=== PATIENT | female | born 1935 | race Caucasian/White ===

== ENCOUNTER 2022-12-03 10:38 | Outpatient (CLI) | payer MEDICARE | END 2022-12-03 23:59 | disposition home or self-care (01) | LOC: CARD DIAG 10:38 | PROVIDERS: ATTEND Internal Medicine Cardiovascular Disease | DX: I34.0 Nonrheumatic mitral (valve) insufficiency (principal); R06.02 Shortness of breath | CPT/HCPCS: 93306 ==

== ENCOUNTER 2024-01-29 06:09 | Day surgery (SDC) | payer MEDICARE ==
[2024-01-29] VITALS (10 sets, daily range): BP systolic 137–164; BP diastolic 64–104; PULSE 48–74; RESP 15–20; TEMP 98.7; O2SAT 93–98
[~2024-01-29] VITALS: Ht 167.6 cm; Wt 103.4 kg
[2024-01-29] MEDS ORDERED: LIDOcaine 1% w/EPI 1:100,000 inj. MDV 50 ML VIAL ONE (07:13)
[2024-01-29] MEDS ORDERED: midazolam 1 mg/ML 2ml injection ONE (07:13)
[2024-01-29] MEDS ORDERED: fentaNYL/PF 50MCG/1 ML 2ML syringe ONE (07:14)
[2024-01-29] MEDS ORDERED: ceFAZolin 1000mg inj ONE (07:14)
[2024-01-29 07:24] LABS: APTT 25 SECONDS (22-32); PROTHROMBIN TIME 11.2 SECONDS (9.0-12.0)
[2024-01-29] MEDS ORDERED: HYDR-3964 PO (07:25)
[2024-01-29] MEDS ORDERED: LISI5TAB22 PO (07:25)
[2024-01-29] MEDS ORDERED: FURO20TA4 (07:25)
[2024-01-29] MEDS ORDERED: LETR2.5T7 PO (07:25)
[2024-01-29 07:39] LABS: ALBUMIN 3.6 G/DL (3.4-5.0); ANION GAP 8 (8-16); BLOOD UREA NITROGEN 33 MG/DL (7-18); BUN/CREATININE RATIO 33.7 (10.0-20.0); CALCIUM 8.9 MG/DL (8.5-10.1); CHLORIDE 109 MMOL/L (99-107); CREATININE 0.98 MG/DL (0.40-0.90); GLUCOSE 87 MG/DL (70-104); POTASSIUM 4.1 MMOL/L (3.5-5.1); SODIUM 145 MMOL/L (135-145); TOTAL CARBON DIOXIDE 28.3 MMOL/L (24-32); eCRCL 38 ML/MIN; eGFR 54 ML/MIN
[2024-01-29 07:40] LABS: BASOPHILS % (AUTO) 0.9 % (0-1); EOSINOPHILS # (AUTO) 0.1 X10'3 (0-0.9); HEMOGLOBIN 13.5 g/dl (12.0-16.0); LYMPHOCYTES # (AUTO) 1.1 X10'3 (1.1-4.8); LYMPHOCYTES % (AUTO) 20.3 % (21-51); MEAN CORPUSCULAR HEMOGLOBIN 31.6 PG (27.0-31.0); MEAN CORPUSCULAR VOLUME 95.8 FL (78-98); MEAN PLATELET VOLUME 8.6 FL (7.4-10.4); MONOCYTES # (AUTO) 0.5 X10'3 (0-0.9); MONOCYTES % (AUTO) 9.8 % (2-12); NEUTROPHILS # (AUTO) 3.5 X10'3 (1.8-7.7); PLATELET COUNT 186 X10'3 (140-440); RED BLOOD COUNT 4.28 X10'6 (4.20-5.60); RED CELL DISTRIBUTION WIDTH 14.9 % (11.5-14.5); WHITE BLOOD COUNT 5.2 X10'3 (4.5-11.0)
[2024-01-29] MEDS ORDERED: HYDROcodone/acetaminophen 5mg/325mg tablet PO PRN (10:15)
[2024-01-29] MEDS ORDERED: HYDROcodone/acetaminophen 10/325mg tab PO PRN (10:15)
[2024-01-29] MEDS: cefazolin 2gm/D5W 100mL 100 ML IV ONE (11:09)
[2024-01-29] MEDS: vancomycin/NS 1 GM ADD-VANTAGE 250 ML IV ONE (11:10)
[2024-01-29] MEDS: normal saline 1000ml 1,000 ML IV SCH (11:12)
== END 2024-01-29 14:30 | disposition home or self-care (01) ==
LOC: SSTAY O 06:09
PROVIDERS: ATTEND Internal Medicine Cardiovascular Disease
DX: I49.5 Sick sinus syndrome (principal); I49.1 Atrial premature depolarization; I25.2 Old myocardial infarction; I10 Essential (primary) hypertension; E78.5 Hyperlipidemia, unspecified; I48.0 Paroxysmal atrial fibrillation; E66.3 Overweight; Z85.3 Personal history of malignant neoplasm of breast; Z79.2 Long term (current) use of antibiotics; Z79.82 Long term (current) use of aspirin; Z79.899 Other long term (current) drug therapy; Z98.49 Cataract extraction status, unspecified eye; Z98.890 Other specified postprocedural states; Z68.36 Body mass index [BMI] 36.0-36.9, adult; Z88.1 Allergy status to other antibiotic agents; Z88.8 Allergy status to other drugs, medicaments and biological substances; Z82.49 Family history of ischemic heart disease and other diseases of the circulatory system
CPT/HCPCS: 33208; 36415; 71046; 80048; 85025; 85610; 85730; 93005; 99152; 99153; A4565; A4615; A6402; C1785; C1898; J0690; J2250; J3010; J3370; J3490; J7030; Z7610; A6449